=== PATIENT | female | born 1945 ===

== ENCOUNTER → 2022-01-01 | Outpatient (CLI) | payer OTHER | END | disposition home or self-care (01) | LOC: RAD 10:55 | DX: Z01.810 Encounter for preprocedural cardiovascular examination (principal); I20.9 Angina pectoris, unspecified ==

== ENCOUNTER 2022-01-10 06:17 | Day surgery (SDC) | payer OTHER ==
[~2022-01-10 06:17] MED LIST: ACID REDUCER20 M1 PO; ADULT LOW DOSE81 M1 PO; ARAVA10 MG PO; LOSARTAN-HCTZ1 EAC1 PO; NORVASC5 MG PO; PLAQUENIL PO; PLAVIX75 MG PO; SINGULAIR10 MG PO; SYNTHROID75 MCG PO
== END 2022-01-10 14:20 | disposition home or self-care (01) ==
LOC: CIR.AMB 06:17
PROVIDERS: ATTEND Otolaryngology Otology & Neurotology
DX: H72.92 Unspecified perforation of tympanic membrane, left ear (principal); H66.92 Otitis media, unspecified, left ear; Z20.822 Contact with and (suspected) exposure to COVID-19; Z91.013 Allergy to seafood; I10 Essential (primary) hypertension; Z86.73 Personal history of transient ischemic attack (TIA), and cerebral infarction without residual deficits; J45.909 Unspecified asthma, uncomplicated; I87.2 Venous insufficiency (chronic) (peripheral)